=== PATIENT | female | born 1930 | race Caucasian/White ===

== ENCOUNTER → 2020-05-12 21:12 | Outpatient (CLI) | payer MEDICARE ==
[2020-05-12 22:15] LABS: BASOPHILS 0.3 % (0-2); EOSINOPHILS 3.8 % (0-7); HEMATOCRIT 40.1 % (36.0-48.0); HEMOGLOBIN 12.6 g/dL (12-16); IMMATURE GRANULOCYTES 0.2 % (0-5); LYMPHOCYTES 8.4 % (15-50); MCH 31.2 pg (26.0-34.0); MCHC 31.4 g/dL (31.0-37.0); MCV 99.3 fL (80.0-100.0); MEAN PLATELET VOLUME 12.5 fL (7.4-10.4); MONOCYTES 7.2 % (2-11); NEUTROPHILS 80.1 % (40-80); PLATELET COUNT 216 10x3/uL (130-400); RBC 4.04 10x6/uL (4.00-5.40); RDW 15.4 % (11.5-14.5); WBC 9.6 10x3/uL (4.8-10.8)
[2020-05-12 22:32] LABS: ALBUMIN 2.9 g/dL (3.4-5.0); ANION GAP 13.1 mmol/L (8-16); BILIRUBIN - TOTAL 0.81 mg/dL (0.2-1.3); CALCIUM 8.8 mg/dL (8.5-10.1); CARBON DIOXIDE 28.3 mmol/L (21.0-32.0); CREATININE - SERUM 1.5 mg/dL (0.6-1.3); POTASSIUM - SERUM 3.4 mmol/L (3.5-5.1); PROTEIN - SERUM 6.6 g/dL (6.4-8.2)
== END | disposition home or self-care (01) ==
LOC: D.LABREF 21:12
PROVIDERS: ATTEND Nurse Practitioner Gerontology
DX: F03.90 Unspecified dementia, unspecified severity, without behavioral disturbance, psychotic disturbance, mood disturbance, and anxiety (principal)